=== PATIENT | female | born 1940 | race Caucasian/White ===

== ENCOUNTER 2017-12-02 10:49 | Inpatient (IN) | payer MEDICARE ==
[~2017-12-02] VITALS: Ht 152.4 cm; Wt 75.7 kg
[2017-12-02] MEDS ORDERED: IPRATROPIUM/ALBUTEROL SULFATE 3 ML SOLUTION IH ONE (10:58)
[2017-12-02 11:17] LABS: BASOPHILS % (AUTO) 0.5 % (0.0-5.0); EOSINOPHILS % (AUTO) 0.2 % (0.0-8.0); HEMATOCRIT 35.7 % (36-48); LYMPHOCYTES % (AUTO) 12.9 % (21.0-51.0); MEAN CORPUSCULAR HEMOGLOBIN 31.6 pg (27.0-33.0); MEAN CORPUSCULAR HGB CONC 35.6 g/dL (32.0-36.0); MEAN CORPUSCULAR VOLUME 88.8 fL (79-99); MONOCYTES % (AUTO) 9.7 % (3.0-13.0); NEUTROPHILS % (AUTO) 76.7 % (40.0-77.0); NUCLEATED RED BLOOD CELLS 0.2 % (0.0-0.19); PLATELET COUNT (AUTO) 166 K/uL (130-400); RED BLOOD CELL COUNT(AUTO) 4.02 MIL/uL (4.00-5.50); RED CELL DISTRIBUTION WIDTH 13.7 % (11.0-15.5); WHITE BLOOD COUNT (AUTO) 8.3 K/uL (4.8-10.8)
[2017-12-02] MEDS ORDERED: SODIUM CHLORIDE 0.9% 1000ML 1,000 ML IV ONE (11:54)
[2017-12-02 12:02] LABS: CREATININE 0.9 mg/dL (0.5-1.5); POTASSIUM 3.8 mmol/L (3.5-5.1)
[2017-12-02 12:07] LABS: ALBUMIN 3.1 g/dL (3.5-5.0); BILIRUBIN,TOTAL 1.3 mg/dL (0.2-1.0); TOTAL PROTEIN, SERUM 6.7 g/dL (6.0-8.3)
[2017-12-02] MEDS ORDERED: METHYLPREDNISOLONE SOD SUCC 40MG/ML 1ML ONE (12:57)
[2017-12-02] MEDS ORDERED: AZITHROMYCIN 500MG+NS 250ML 250 ML IV ONE (12:57)
[2017-12-02] MEDS ORDERED: CEFTRIAXONE SODIUM 1 GM ONE (12:57)
[2017-12-02] MEDS ORDERED: OSELTAMIVIR PHOSPHATE 75 MG CAP ONE (12:58)
[2017-12-02 14:20] LABS: APPEARANCE,URINE Cloudy (CLEAR); BILIRUBIN,URINE Negative (NEGATIVE); COLOR,URINE Yellow (YELLOW); GLUCOSE, URINE (UA) Negative (NEGATIVE); KETONES,URINE Negative (NEGATIVE); LEUKOCYTE ESTERASE ,URINE Trace (NEGATIVE); NITRATE,URINE Negative (NEGATIVE); OCCULT BLOOD,URINE Trace (NEGATIVE); PH,URINE 5.5 (5.0-8.0); PROTEIN,URINE Negative (NEGATIVE); UROBILINOGEN,URINE 0.2 mg/dL (0.2-1.0)
[2017-12-02 14:26] LABS: BACTERIA,URINE Rare /HPF (None Seen); WBC,URINE 0-1 /HPF (0-1)
[2017-12-02 14:27] LABS: SQUAMOUS EPITHELIAL CELL,UR Many /LPF (0-2); YEAST,URINE BUDDING Few /HPF (None Seen)
[2017-12-02 17:00] VITALS: BP 129/52
[2017-12-02] MEDS: SODIUM CHLORIDE 0.9% 1000ML 1,000 ML IV SCH (17:26)
[2017-12-02] MEDS: METHYLPREDNISOLONE SOD SUCC 40MG/ML 1ML IVP SCH ×2 (17:26→23:23)
[2017-12-02] MEDS ORDERED: SERT50TA12 PO (17:51)
[2017-12-02] MEDS ORDERED: OMEP-272 PO (17:51)
[2017-12-02] MEDS ORDERED: FERR140T PO (17:51)
[2017-12-02] MEDS ORDERED: LEVO75 PO (17:51)
[2017-12-02] MEDS ORDERED: CHOL200013 PO (17:51)
[2017-12-02] MEDS ORDERED: HYDR25TA PO (17:51)
[2017-12-02] MEDS ORDERED: PENI500T2 PO (17:51)
[2017-12-02] MEDS ORDERED: METF500T6 PO (17:51)
[2017-12-02] MEDS ORDERED: ATEN25TA PO (17:51)
[2017-12-02] MEDS ORDERED: MAGN400T6 PO (17:51)
[2017-12-02] MEDS ORDERED: ASPI-1012 PO (17:51)
[2017-12-02 18:00] VITALS: BP 147/64
[2017-12-02] MEDS: IPRATROPIUM/ALBUTEROL SULFATE 3 ML SOLUTION IH SCH ×2 (18:26→23:43)
[2017-12-02 19:15] VITALS: BP 122/61
[2017-12-02] MEDS: OSELTAMIVIR PHOSPHATE 75 MG CAP PO SCH (21:17)
[2017-12-02] MEDS: INSULIN HUMULIN R 100 UNIT/ML 3ML SQ SCH (21:22)
[2017-12-02 23:46] VITALS: BP 128/49
[2017-12-03 03:42] VITALS: BP 135/57
[2017-12-03] MEDS: METHYLPREDNISOLONE SOD SUCC 40MG/ML 1ML IVP SCH (05:31)
[2017-12-03] MEDS: SODIUM CHLORIDE 0.9% 1000ML 1,000 ML IV SCH ×3 (05:35→23:38)
[2017-12-03 06:07] LABS: HEMATOCRIT 34.2 % (36-48); MEAN CORPUSCULAR HEMOGLOBIN 32.2 pg (27.0-33.0); MEAN CORPUSCULAR HGB CONC 36.2 g/dL (32.0-36.0); PLATELET COUNT (AUTO) 172 K/uL (130-400); RED BLOOD CELL COUNT(AUTO) 3.84 MIL/uL (4.00-5.50); RED CELL DISTRIBUTION WIDTH 13.8 % (11.0-15.5); WHITE BLOOD COUNT (AUTO) 7.2 K/uL (4.8-10.8)
[2017-12-03 06:23] LABS: ALBUMIN 2.8 g/dL (3.5-5.0); BILIRUBIN,TOTAL 0.7 mg/dL (0.2-1.0); CREATININE 0.9 mg/dL (0.5-1.5); MAGNESIUM 1.6 mg/dL (1.80-2.40); POTASSIUM 3.3 mmol/L (3.5-5.1); TOTAL PROTEIN, SERUM 6.8 g/dL (6.0-8.3)
[2017-12-03] MEDS: INSULIN HUMULIN R 100 UNIT/ML 3ML SQ SCH ×4 (07:15→21:32)
[2017-12-03 07:24] VITALS: BP 136/60
[2017-12-03 07:58] LABS: BAND NEUTROPHILS % (MANUAL) 5 % (0-2); LYMPHOCYTES % (MANUAL) 14 % (22-44); MAN.DIFF COMMENT-IMPRESSION MANUAL DIFFERENTIAL; MONOCYTES % (MANUAL) 3 % (2-9); SEGMENTED NEUTROPHILS % 78 % (40-70)
[2017-12-03 08:01] LABS: PLATELET MORPHOLOGY COMMENT ADEQUATE
[2017-12-03] MEDS: PREDNISONE 20 MG TABLET PO SCH ×2 (08:31→20:50)
[2017-12-03] MEDS: OSELTAMIVIR PHOSPHATE 75 MG CAP PO SCH ×2 (08:31→20:50)
[2017-12-03] MEDS ORDERED: CEFTRIAXONE SODIUM 1 GM IVP ONE (08:33)
[2017-12-03] MEDS ORDERED: CEFTRIAXONE SODIUM 1 GM IV SCH (09:00)
[2017-12-03 11:04] VITALS: BP 114/57
[2017-12-03 16:23] VITALS: BP 138/68
[2017-12-03] MEDS ORDERED: AZITHROMYCIN 500MG+NS 250ML 250 ML IV SCH (17:00)
[2017-12-03 19:00] VITALS: BP 149/79
[2017-12-03] MEDS: IPRATROPIUM/ALBUTEROL SULFATE 3 ML SOLUTION IH PRN (20:07)
[2017-12-03 23:42] VITALS: BP 132/52
[2017-12-04] MEDS: IPRATROPIUM/ALBUTEROL SULFATE 3 ML SOLUTION IH PRN ×2 (00:05→07:10)
[2017-12-04 03:20] VITALS: BP 137/61
[2017-12-04] MEDS: INSULIN HUMULIN R 100 UNIT/ML 3ML SQ SCH (06:15)
[2017-12-04 07:23] VITALS: BP 154/71
[2017-12-04] MEDS: OSELTAMIVIR PHOSPHATE 75 MG CAP PO SCH (08:56)
[2017-12-04] MEDS: PREDNISONE 20 MG TABLET PO SCH (08:56)
== END 2017-12-04 11:20 | disposition home or self-care (01) | DRG 203 ==
LOC: EDH 10:49 → EDHIP 12:30 → 2CH 16:38
PROVIDERS: ADMIT Family Medicine; ATTEND Family Medicine
DX: J40 Bronchitis, not specified as acute or chronic (principal); E86.0 Dehydration; E11.9 Type 2 diabetes mellitus without complications; E03.9 Hypothyroidism, unspecified; E78.5 Hyperlipidemia, unspecified; I10 Essential (primary) hypertension; Z88.8 Allergy status to other drugs, medicaments and biological substances
CPT/HCPCS: 36415; 71045; 80053; 81001; 82948; 83605; 83735; 84484; 85025; 87088; 87804; 93005; 94640; 94664; A4218; J0456; J0696; J1815; J2920; J7030